=== PATIENT | male | born 1955 | race African-American/Black ===

== ENCOUNTER 2017-08-17 10:44 | Observation (INO) | payer OTHER ==
[~2017-08-17] VITALS: Ht 188 cm; Wt 99.4 kg
[~2017-08-17 10:44] MED LIST: ASPIRIN LOW81 M1 PO; CEPHALEXIN500 MG PO; CIPRO500 MG OR; CIPROFLOXACN500 MG PO; DILAUDID2 MG OR; DOMBORO OTIC15 ML OT; FLEXERIL10 MG PO; HYDROCHLOROT12.5 MG PO; HYDROCORT2.51 TOP; LISINOP/HCTZ1 TAB PO; LISINOPRIL5 MG PO; LORTAB 5/3255 MG PO; LORTAB5 PO; METFORMIN500 MG PO; MUPIROCIN2 % EX; NAPROSYN500 MG OR; NAPROSYN500 MG PO; NO MEDS; OMEGA-2 OR; RAPAFLO4 MG PO; RAPAFLO8 MG OR; ULTRAM50 M1 PO
[2017-08-17 11:52] LABS: HEMATOCRIT 44.9 % (39.0-50.0); HEMOGLOBIN 14.5 g/dl (14.0-18.0); IMMATURE GRANULOCYTES 0.4 % (0.0-1.0); MEAN CELL VOLUME 92.2 fL CALC (80.0-100.0); MEAN CORPUSCULAR HGB 29.8 pG CALC (26.0-32.0); MEAN CORPUSCULAR HGB CONC 32.3 g/L CALC (32.0-36.0); NEUT# 2.75 thou/uL (1.82-7.42); RED BLOOD COUNT 4.87 mill/uL (4.70-6.10); RED CELL DISTRI WIDTH 13.8 % (11.5-15.5)
[2017-08-17 12:13] LABS: ALBUMIN 4.1 g/dL (3.2-5.0); ALKALINE PHOSPHATASE 74 u/l (38-126); ANION GAP 16 (6-22 (CALC)); BILIRUBIN, TOTAL 0.4 mg/dL (0.0-1.4); BUN 21 mg/dL (8-23); BUN/CREATININE RATIO 16 (12-20 (CALC)); CARBON DIOXIDE 24 mmol/l (22-30); CHLORIDE 105 mmol/l (95-108); CREATININE 1.3 mg/dL (0.7-1.3); GFR 56 ML/MIN (>=60 (CALC)); GFR FOR AFR.AMER. > 60 ML/MIN (>=60 (CALC)); POTASSIUM 4.6 mmol/l (3.5-5.1); SGOT/AST 28 u/l (19-48); SGPT/ALT 40 u/l (11-66); SODIUM 140 mmol/l (137-146); TOTAL PROTEIN 7.5 g/dL (6.3-8.2)
[2017-08-17 12:25] LABS: MYOGLOBIN 78 ng/mL (0 - 121)
[2017-08-17 13:07] VITALS: BP 170/96
[2017-08-17 14:35] VITALS: BP 152/87
[2017-08-17 15:38] VITALS: BP 156/89
[2017-08-17 20:00] VITALS: BP 143/89
[2017-08-18] VITALS: BP 137/88
[2017-08-18 04:00] VITALS: BP 127/88
[2017-08-18 06:23] LABS: CHOLESTEROL HDL RATIO 1.7 (<4.4 (CALC))
[2017-08-18 08:36] VITALS: BP 135/79
[2017-08-18 11:38] VITALS: BP 135/97
[2017-08-18] MEDS ORDERED: LISINOPRIL10 M1 PO (13:06)
[2017-08-18] MEDS ORDERED: ASPIRIN LOW81 M1 PO (13:06)
== END 2017-08-18 13:45 | disposition home or self-care (01) | DRG 313 ==
LOC: ED 10:44 → ED-I 12:20 → ED 12:39 → MS2 12:40
PROVIDERS: ADMIT Internal Medicine; ATTEND Internal Medicine
DX: R07.89 Other chest pain (principal); I16.0 Hypertensive urgency; I10 Essential (primary) hypertension; E11.9 Type 2 diabetes mellitus without complications; Z79.82 Long term (current) use of aspirin; Z85.46 Personal history of malignant neoplasm of prostate
CPT/HCPCS: G0378

== ENCOUNTER 2019-08-30 08:47 | Emergency (ER) | payer OTHER ==
[~2019-08-30 08:47] MED LIST changes: +LISINOPRIL10 M1 PO
[2019-08-30] MEDS ORDERED: MOTRIN400 MG PO (09:57)
[2019-08-30] MEDS ORDERED: HYDROCO/APAP1 TA9 PO (09:58)
[2019-08-30 10:11] VITALS: BP 148/77
== END 2019-08-30 10:25 | disposition home or self-care (01) | DRG 563 ==
LOC: ED 08:47
PROC: 2W3QX1Z Immobilization of Right Lower Leg using Splint (ICD-10-PCS; principal; 2019-08-30)
DX: S82.61XA Displaced fracture of lateral malleolus of right fibula, initial encounter for closed fracture (principal); M25.511 Pain in right shoulder; E11.9 Type 2 diabetes mellitus without complications; I10 Essential (primary) hypertension; W01.0XXA Fall on same level from slipping, tripping and stumbling without subsequent striking against object, initial encounter; Y92.009 Unspecified place in unspecified non-institutional (private) residence as the place of occurrence of the external cause